=== PATIENT | male | born 1945 | race Caucasian/White ===

== ENCOUNTER 2024-04-06 01:33 | Emergency (ER) | payer OTHER, SELFPAY ==
[2024-04-06 01:36] VITALS: BP 150/79
--- NOTE | 2024-04-06 02:02 | EDRN ---
Pt reports about 1.5 months of b/l upper leg pain, neck pain, and generally not feeling like himself. Has seen his PCP and was ordered a whole bunch of tests including Lyme's Disease. Pt states Lyme's was negative but doctor prescribed him 10 days
of doxycycline & steroids which made him feel better. Pt states he never had a noticeable bite or rash. Has been taking Ibuprofen for pain. Pt just feels fed up and couldn't take the discomfort.
[2024-04-06 02:07] VITALS: BMI 22.8
--- NOTE | 2024-04-06 02:10 | ED.MUSCINJ ---
HPI-Injury
General
Chief Complaint: Musculo-Skeletal Complaint
Source: patient and spouse
Exam Limitations: none
Time Seen by Provider: 04/06/24 01:53
Nursing documentation reviewed up to this point in time: agreed with
History of Present Illness-Injury
Is this injury a work related problem?: No
Is pt an associate of [facility]/[place]?: No
Initial Injury comments:
78-year-old male presents emergency department complaining of low back pain rating to bilateral legs for 1.5 months. He had a Lyme performed and was placed on doxycycline. Lyme test was negative per the patient. He also was placed on steroids for
a brief period and that did help his pain. No loss of bowel or bladder. No saddle anesthesia.
Past History
Past History
ED Past Medical History: GERD, HTN and Hypercholesterolemia
ED Past Surgical History: Urological (Lithotripsy, stone removal from bladder)
Social History
Tobacco: Non-smoker
Alcohol: None
Drug: None
Personal:
Living: with family
Review of Systems
Review of Systems
Allergies reviewed?: Yes
All Other Systems: Not applicable
Constitutional: Reports no symptoms
EENT: Reports no symptoms
Respiratory: Reports no symptoms
Cardiac: Reports no symptoms
ABD/GI: Reports no symptoms
: Reports no symptoms
Musculoskeletal: Reports neck pain and back pain
Skin: Reports no symptoms
Neurological: Reports no symptoms; Denies numbness
Endocrine: Reports no symptoms
Hematologic/Lymphatic: Reports no symptoms
Psychiatric: Reports no symptoms
Phy Exam
Physical Exam
Physical Exam:
Physical Exam
General: no apparent distress, not acutely ill
Neck: supple. no meningeal signs. normal posterior pharynx
Heart: s1/s2 regular rate and rhythm, no murmur. equal radial
pulses.
HEENT: Pupils equal round reactive to light, EOMI
Lungs: no acute respiratory distress. clear bilaterally
Abdomen: normal bowel sounds. not tender. no CVAT
Neuro: alert and oriented. no focal neurological deficits cranial nerves II through XII intact
Skin: no rash
Psychiatric: well kept. interactive and cooperative
Extremities: no edema. no calf tenderness. negative homans. good distal pulses
Injury Course
Orders/Labs/Results
Orders:
Orders
04/06/24 02:07
Lumbar Spine Complete, 4 View [CR Lumbar Spine Comp Min 4 Vw*] Urgent
Comment:
Reason For Exam: low back pain
Thoracic Spine 4 Views CR [CR Thoracic Spine Min 4 Views] Urgent
Comment:
Reason For Exam: mid back pain
04/06/24 02:08
Gabapentin [Neurontin] 300 mg PO NOW STA
04/06/24 02:13
Lyme Progressive Urgent
MDM/Problems Addressed
Differential Diagnosis Includes:
Cauda equina, radiculopathy
MDM/Problems Addressed:
78-year-old male with low back pain, likely radiculopathy. No signs of cauda equina. Do not suspect aortic dissection. Symptoms ongoing for 1.5 months. Will treat with steroid course, gabapentin and follow-up with pain management.
*Radiology
Radiology exam reviewed: preliminary read by ED provider (Thoracic spine x-ray and lumbar spine x-ray showed degenerative changes)
*Pulse Oximetry
Patient hypoxic: no
*EKG
Interpreted by ED Provider?: NA
*Ballistics Expert Forensic Interpretation
Rate: Ballistics Expert Forensic- N/A
*Critical Care Note
Total Time (30-74mins, 75-104mins- exclusive of procedures): Not Applicable
Data Reviewed
Further Testing Considered But Not Given:
MRI not indicated
Patient Management
Social determinants of health affecting care: Living situation and Strong social support
Escalation/DeEscalation of care consider admission/obs:
Admit not indicated
ED Attending Note
-
Portions of this chart may have been created with voice recognition software.� Occasional wrong word or��sound alike� substitutions may have occurred due to the inherent limitations of voice recognition software.
Discharge Plan
Departure
Patient Disposition: Home (Routine Discharge)
Date of Disposition: 04/06/24
Time of Disposition: 02:58
Patient with high blood pressure during this ER visit?: Yes
Condition: Good
Discharge Problem:
Lumbar radiculopathy
Instructions: Radiculopathy (DC), BLOOD PRESSURE
Prescriptions:
New
prednisone 10 mg Tablet
See Rx Instructions .ROUTE .COMPLEX Qty: 45 0RF
Rx Instructions:
Take By Mouth:
50 mg daily x3 days, 40 mg daily x3 days,
30 mg daily x3 days, 20 mg daily x3 days,
10 mg daily x3 days
gabapentin [Neurontin] 300 mg capsule
300 mg PO BID Qty: 30 0RF
No Action
ibuprofen 600 mg Tablet
600 mg PO Q6H PRN (Reason: pain)
Referrals:
iVji Alfaro, DO [Active] - Call in 1-3 days for appt
Interventions
Interventions:
*Risk Screen - Suicide Last Done: 04/06/24 01:36
*General Assessment Last Done: 04/06/24 01:36
*Neglect/Abuse Screening Last Done: 04/06/24 01:36
ED- Fall Risk Assessment Last Done: 04/06/24 01:36
*ED COVID-19 Vaccine History Last Done: 04/06/24 01:36
ED-Musculoskeletal Assessment Last Done: 04/06/24 02:07
Discharge Date and Time
Print Language: SYRIAC
[2024-04-06] MEDS: NEURONTIN 300 MG PO (02:17)
[2024-04-06 02:18] VITALS: BP 134/75
[2024-04-08 16:02] LABS: Lyme Antibody Screen, EIA Negative (Negative)
== END 2024-04-06 03:15 | disposition home or self-care (01) ==
LOC: EMR 01:33
PROVIDERS: EMERGENCY PHYSICIAN Emergency Medicine; FAMILY PHYSICIAN Family Medicine
DX: M54.16 Radiculopathy, lumbar region (principal); I10 Essential (primary) hypertension
CPT/HCPCS: 99283; 72074; 72110; 86618

== ENCOUNTER → 2024-04-15 12:08 | Outpatient (REF) | payer OTHER, SELFPAY | LOC: HWRAD 12:08 | PROVIDERS: ATTENDING PHYSICIAN Physician Assistant; FAMILY PHYSICIAN Physician Assistant Medical | DX: Z13.820 Encounter for screening for osteoporosis (principal) | CPT/HCPCS: 77080 ==

== ENCOUNTER 2024-09-27 23:30 | Emergency (ER) | payer OTHER, SELFPAY ==
[2024-09-27 23:43] VITALS: BP 101/66
[2024-09-28 00:07] LABS: % Basophils 0.3 % (0-2); % Eosinophils 0.3 % (0-6); % Immature Granulocytes 0.6 % (0-0.5); % Lymphocytes 5.1 % (20.5-51.1); % Monocytes 13.8 % (1.7-9.3); % Neutrophils 79.9 % (42.2-75.2); Absolute Immature Granulocytes 0.1 10^3/uL (0-0.05); Absolute Lymphocytes 0.6 10^3/uL (1.2-3.4); Absolute Monocytes 1.5 10^3/uL (0.1-0.6); Absolute Neutrophils 8.7 10^3/uL (1.4-6.5); Hematocrit 42.1 % (39.0-52.0); Hemoglobin 14.5 g/dL (13.0-18.0); Mean Corp Hgb Conc. 34.4 g/dL (33.0-37.0); Mean Corpuscular Hgb 30.6 pg (27.0-31.0); Mean Corpuscular Volume 88.8 fL (80.0-94.0); Nucleated Red Blood Cells % 0 % (-); Platelet Count 176 10^3/uL (130-400); Red Blood Cell Count 4.74 10^6/uL (4.70-6.10); Red Cell Dist. Width 12.9 % (11.5-14.5); White Blood Cell Count 10.8 10^3/uL (4.8-10.8)
[2024-09-28 00:21] LABS: COVID-19 Antigen Negative (Negative)
[2024-09-28 00:22] LABS: Urine Albumin Negative (Neg - Trace); Urine Bilirubin Negative (Negative); Urine Character Clear (Clear); Urine Color Yellow; Urine Glucose Negative (Negative); Urine Ketone Negative (Negative); Urine Leukocyte Negative (Negative); Urine Nitrite Negative (Negative); Urine Occult Blood Negative (Negative); Urine Specific Gravity 1.015 (<1.030); Urine Urobilinogen Negative (Neg - 1+)
[2024-09-28 00:23] LABS: Lactic Acid 1.2 mmol/L (0.7-2.0)
[2024-09-28 00:25] LABS: ALT (SGPT) 28 U/L (0-50); AST (SGOT) 26 U/L (17-59); Albumin 4.5 g/dl (3.5-5.0); Alkaline Phosphatase 63 U/L (38-126); Blood Urea Nitrogen 22 mg/dl (9-20); Calcium 9.3 mg/dl (8.4-10.2); Carbon Dioxide 26 mmol/L (22-30); Chloride 98 mmol/L (98-107); Glucose 130 mg/dl (70-99); Potassium 4.3 mmol/L (3.5-5.1); Sodium 133 mmol/L (135-145); Total Bilirubin 0.8 mg/dl (0.2-1.3); Total Protein 7.1 g/dl (6.3-8.2); eGFR 47.65
[2024-09-28 05:30] VITALS: BP 121/77; BMI 26.0
--- NOTE | 2024-09-28 07:09 | ED.GENMED ---
History of Present Illness
General
Chief Complaint: Fever
Source: patient
Time Seen by Provider: 09/28/24 06:57
History of Present Illness
History of Present Illness:
78-year-old male presents to the emergency room complaining of fever. Temperature was 103. He feels achy all over. He denies feeling short of breath. Denies any dysuria or frequency. Patient did receive a flu vaccine this year. He has a
history of rheumatoid arthritis for which she takes prednisone. He is tolerating oral intake.
Past History
Past History
ED Past Medical History: GERD, HTN and Hypercholesterolemia
ED Past Surgical History: Urological (Lithotripsy, stone removal from bladder)
Social History
Tobacco: Non-smoker
Alcohol: None
Drug: None
Personal:
Living: with family
Phy Exam
Physical Exam
Physical Exam:
General: Awake, Alert, Oriented X3. No acute distress.
Vitals: unremarkable
Head: Atraumatic
Eyes: Pupils equal, EOMI
Throat: Airway intact, no exudates
Neck: Trachea midline
Lungs: Clear and equal b/l
Heart: Regular rate, no murmurs
Abd: Soft, Nontender, No pulsatile mass
Neuro: Nonfocal
Skin: Warm, dry, no rash
Extremities: pulses equal b/l, no edema
Sepsis
Sepsis Screening
Sepsis Assessment: Sepsis Ruled Out
Sepsis Screen
Sepsis Screen: Sepsis Ruled Out
Date: 09/28/24
Time: 14:51
Course
Orders/Labs/Results
Orders:
Orders
09/27/24 23:54
Complete Blood Count/With Diff Urgent
Comprehensive Metabolic Panel Urgent
Lactic Acid Q4H
Comment: ON ICE, CANCEL 2ND ORDER IF FIRST LACTIC ACID LEVEL <2
09/27/24 23:57
COVID-19 Antigen Urgent
Source: Nasal Swab
Urinalysis Reflex To Culture Urgent
Date Specimen was Collected: 09/27/24
Time Specimen was Collected: 23:47
Influenza A+B Rapid Molecular Urgent
[place] Source: Nasal Swab
Specimen Description:
Date Specimen was Collected: 09/27/24
Time Specimen was Collected: 23:47
09/28/24 00:00
CR Chest - 2 Views Urgent
Reason For Exam: suspected infection
Abnormal Lab Results
09/27/24
23:54
MPV 11.0 H fL
(7.4-10.4)
Abs Immat Gran (auto) 0.1 H 10^3/uL
(0-0.05)
Absolute Neuts (auto) 8.7 H 10^3/uL
(1.4-6.5)
Absolute Lymphs (auto) 0.6 L 10^3/uL
(1.2-3.4)
Absolute Monos (auto) 1.5 H 10^3/uL
(0.1-0.6)
Immature Gran % 0.6 H %
(0-0.5)
Neutrophils % 79.9 H %
(42.2-75.2)
Lymphocytes % 5.1 L %
(20.5-51.1)
Monocytes % 13.8 H %
(1.7-9.3)
Sodium 133 L mmol/L
(135-145)
BUN 22 H mg/dl
(9-20)
Creatinine 1.5 H mg/dL
(0.7-1.3)
Glucose 130 H mg/dl
(70-99)
09/27/24 23:54
09/27/24 23:54
Vital Signs
Initial and Last Documented VS:
Initial Vital Signs
Temp Pulse Resp BP Pulse Ox
100.5 F H 114 22 101/66 95
09/27/24 23:43 09/27/24 23:43 09/27/24 23:43 09/27/24 23:43 09/27/24 23:43
Last Documented Vital Signs
Temp Pulse Resp BP Pulse Ox
99.0 F 82 18 116/71 94
09/28/24 05:30 09/28/24 07:24 09/28/24 07:24 09/28/24 07:24 09/28/24 07:24
MDM/Problems Addressed
Differential Diagnosis Includes:
UTI, COVID, influenza, pneumonia
MDM/Problems Addressed:
Patient's influenza test is positive. The rest of his labs are unremarkable save his creatinine which is mildly elevated at 1.5. We will discharge him on renally dosed Tamiflu. Return for shortness of breath or inability to tolerate oral intake.
Chronic conditions affecting care: HTN
*Radiology
Radiology exam reviewed: preliminary read by ED provider (No acute disease on my review of the patient's chest x-ray)
*Pulse Oximetry
Patient hypoxic: no
*Critical Care Note
Total Time (30-74mins, 75-104mins- exclusive of procedures): Not Applicable
ED Attending Note
-
Portions of this chart may have been created with voice recognition software.� Occasional wrong word or��sound alike� substitutions may have occurred due to the inherent limitations of voice recognition software.
Discharge Plan
Departure
Patient Disposition: Home (Routine Discharge)
Date of Disposition: 09/28/24
Time of Disposition: 07:10
Patient with high blood pressure during this ER visit?: No
Condition: Good
Discharge Problem:
Influenza A
Instructions: Flu
Prescriptions:
New
oseltamivir [Tamiflu] 30 mg capsule
30 mg PO BID 5 Days Qty: 10 0RF
No Action
losartan 50 mg Tablet
50 mg PO DAILY
prednisone 5 mg Tablet
5 mg PO DAILY
Rx Instructions:
AM
prednisone 1 mg Tablet
2 mg PO DAILY
Rx Instructions:
PM
Referrals:
Keegan Leal PA-C [Family Provider] -
Interventions
Interventions:
*Risk Screen - Suicide Last Done: 09/27/24 23:43
*General Assessment Last Done: 09/27/24 23:43
*Neglect/Abuse Screening Last Done: 09/27/24 23:43
ED- Fall Risk Assessment Last Done: 09/28/24 05:31
*ED COVID-19 Vaccine History Last Done: 09/28/24 05:31
*Nursing Disposition Last Done: 09/28/24 07:24
ED- Neurological Assessment Last Done: 09/28/24 05:31
ED-Skin Assessment Last Done: 09/28/24 05:31
Discharge Date and Time
Discharge Date/Time: 09/28/24 07:25
Print Language: YORUBA
[2024-09-28 07:24] VITALS: BP 116/71
== END 2024-09-28 07:25 | disposition home or self-care (01) ==
LOC: EMR 23:30
PROVIDERS: Student in an Organized Health Care Education/Training Program; EMERGENCY PHYSICIAN Emergency Medicine; FAMILY PHYSICIAN Physician Assistant Medical
DX: R50.9 Fever, unspecified (principal); J10.1 Influenza due to other identified influenza virus with other respiratory manifestations; Z11.52 Encounter for screening for COVID-19; M06.9 Rheumatoid arthritis, unspecified; I10 Essential (primary) hypertension; K21.9 Gastro-esophageal reflux disease without esophagitis; E78.00 Pure hypercholesterolemia, unspecified
CPT/HCPCS: 99283; 71046; 80053; 81003; 83605; 85025; 87502; 87811